=== PATIENT | male | born 1970 | race African-American/Black ===

== ENCOUNTER 2025-04-17 16:27 | Inpatient (IN) | payer OTHER ==
--- NOTE | 2025-04-17 16:53 | ED ---
SOB HPI <Harsh So - Last Filed: 04/17/25 18:42> - General Source: patient Mode of arrival: ambulatory Limitations: no limitations <Olamide Bland - Last Filed: 04/19/25 22:13> - General Chief Complaint: Shortness of Breath Stated Complaint: difficulty breathing Time Seen by Provider: 04/17/25 16:49 - History of Present Illness Initial Comments: 55-year-old male with COPD, current daily smoker here for shortness of breath. Patient reported that in the past few days she has been having difficulty of breathing with associated cough with phlegm. He is not on home oxygen. He denied fever, chills, chest pain, palpitations, extremity swelling, recent prolonged travel, recent procedures, focal weakness, abdominal pain. (Olamide Bland) - Related Data Home Medications Medication Instructions Recorded Confirmed Albuterol Nebulized [Ventolin 2.5 mg INHALATION RT-Q4H PRN 04/17/25 04/17/25 Nebulized] Albuterol Sulfate [Ventolin HFA] 2 puff INHALATION RT-QID PRN 04/17/25 04/17/25 Atorvastatin [Lipitor] 40 mg PO HS 04/17/25 04/17/25 Ergocalciferol [Vitamin D2 (1250 1,250 mcg PO WE 04/17/25 04/17/25 Mcg = 28395 Iu)] Insulin Glargine,Hum.rec.anlog 50 unit SQ HS 04/17/25 04/17/25 [Basaglar Kwikpen U-100] Insulin Lispro [humaLOG Kwikpen] 10 units SQ AC-TID 04/17/25 04/17/25 Levothyroxine Sodium [Synthroid] 125 mcg PO AC-BRKFST 04/17/25 04/17/25 Pantoprazole Sodium [Protonix] 20 mg PO DAILY 04/17/25 04/17/25 lisinopriL [Zestril] 20 mg PO DAILY@1700 04/17/25 04/17/25 metFORMIN HCL [Glucophage] 500 mg PO BID@0800,1700 04/17/25 04/17/25 traZODone HCL 100 mg PO HS 04/17/25 04/17/25 Allergies Allergy/AdvReac Type Severity Reaction Status Date / Time No Known Allergies Allergy Verified 04/17/25 19:02 Review of Systems ROS Other: All systems not noted in ROS Statement are negative. <Harsh So Oskar - Last Filed: 04/17/25 18:42> ROS Other: All systems not noted in ROS Statement are negative. <Olamide Bland - Last Filed: 04/19/25 22:13> ROS Statement: Those systems with pertinent positive or pertinent negative responses have been documented in the HPI. Past Medical History Past Medical History: COPD, Pneumonia Past Psychological History: No Psychological Hx Reported Smoking Status: Current every day smoker Past Alcohol Use History: None Reported Past Drug Use History: None Reported <Olamide Bland - Last Filed: 04/19/25 22:13> General Exam Limitations: no limitations <Olamide Bland - Last Filed: 04/19/25 22:13> - General Exam Comments Initial Comments: Physical examination: Vital signs reviewed General: non toxic, no distress, appears at stated age Head: atraumatic, normocephalic, symmetric Mouth: no lip lesion, mucus membranes moist Cardiovascular: S1S2 tachycardic, no murmur Lungs: Diffuse expiratory inspiratory wheezing, coarse rales, no accessory muscle use Abdominal: soft, nondistended, nontender to palpation, no guarding Ext: muscle strength 5 out of 5 in all 4 extremities grossly, no gross muscle atrophy, no contractures, positive dorsalis pedis pulse bilateral, no edema Neuro: no gross focal neuro deficits Psych: Alert and oriented x3, appropriate affect and mood (Olamide Bland) Course Vital Signs 04/17/25 04/17/25 04/17/25 16:40 17:44 17:55 Temperature 98.9 F Pulse Rate 106 H 104 H Respiratory 22 30 H Rate Blood Pressure 119/75 O2 Sat by Pulse 80 L Oximetry 04/17/25 04/17/25 04/17/25 17:56 18:05 18:20 Temperature Pulse Rate 98 102 H 102 H Respiratory 32 H Rate Blood Pressure 125/88 O2 Sat by Pulse 97 Oximetry 04/17/25 04/17/25 04/17/25 18:52 19:26 19:29 Temperature Pulse Rate 115 H 103 H Respiratory 26 H Rate Blood Pressure 133/84 O2 Sat by Pulse 95 94 L Oximetry 04/17/25 04/17/25 04/17/25 19:39 20:05 20:47 Temperature 97.6 F Pulse Rate 102 H 103 H Respiratory 20 Rate Blood Pressure 114/85 O2 Sat by Pulse 96 Oximetry 04/17/25 21:22 Temperature 98.3 F Pulse Rate 97 Respiratory 20 Rate Blood Pressure 124/70 O2 Sat by Pulse 91 L Oximetry Medical Decision Making - Lab Data Result diagrams: 04/17/25 17:44 04/17/25 17:44 <Harsh So - Last Filed: 04/17/25 18:42> - Lab Data Result diagrams: 04/19/25 04:35 04/19/25 04:35 <Olamide Bland - Last Filed: 04/19/25 22:13> - Medical Decision Making I personally saw the patient and performed the critical portion of the service. I discussed the patient care with the resident. I directed management, care planning and final disposition of the patient. This includes, but not limited to, review of all lab work, radiological studies, EKG's, consultations, vital signs, and nursing notes. EKG interpreted by me (3pts min.) @ [EKG reviewed by myself, please see above X-Rays interpreted by me (1 pt min.) @Chest x-ray negative for acute cardiopulmonary disease. CT interpreted by me ( 1pt min.) @None U/S interpreted by me (1 pt min.) @None Critical care time of 35 minutes minutes excluding separately billable procedures was spent in conjunction with critical care activities provided by the Resident and Attending simultaneously. I was present during no procedures for all critical portions of the procedure and as immediately available to furnish service during the entire procedure. (Harsh So) Was pt. sent in by a medical professional or institution (, PA, CHARGE MASTER ANALYST, urgent care, hospital, or fci...) When possible be specific @ -No Did you speak to anyone other than the patient for history (EMS, parent, family, police, friend...)? What history was obtained from this source @ -No Did you review nursing and triage notes (agree or disagree)? Why? @ -I reviewed and agree with nursing and triage notes Were old charts reviewed (outside hosp., previous admission, EMS record, old EKG, old radiological studies, urgent care reports/EKG's, fci records)? Report findings @ -No old charts were reviewed Differential Diagnosis? @ -Differential Dyspnea: Coronary syndrome, arrhythmia, tamponade, asthma, COPD, pulmonary embolism, pneumonia, pneumothorax, pulmonary effusion, anaphylaxis, diabetic ketoacidosis, flailed chest, pulmonary contusion, diaphragmatic rupture, anemia, neuromuscular, this is not meant to be an all-inclusive list. EKG interpreted by me (3pts min.). @ -As above X-rays interpreted by me (1pt min.). @ -chest xray showed hyperinflation looking like COPD changes. CT interpreted by me (1pt min.). @ -[None done] U/S interpreted by me (1pt. min.). @ -[None done] What testing was considered but not performed or refused? (CT, X-rays, U/S, labs )? Why? @ -[None] What meds were considered but not given or refused? Why? @ -[None] Did you discuss the management of the patient with other professionals (professionals i.e. , PA, CHARGE MASTER ANALYST, lab, RT, psych nurse, social and human services assistant, rail walker, teacher, water resources technical officer, child support case officer)? Give summary @ -Dr. Hicks supervising physician Was smoking cessation discussed for >3mins.? @ -Yes Was critical care preformed (if so, how long)? @ -35 mins Were there social determinants of health that impacted care today? How? (Homelessness, low income, unemployed, alcoholism, drug addiction, transportation, low edu. Level, literacy, decrease access to med. care, detention, rehab)? @ -[No] Was there de-escalation of care discussed even if they declined (Discuss DNR or withdrawal of care, Hospice)? DNR status @ -[No] What co-morbidities impacted this encounter? (DM, HTN, Smoking, COPD, CAD, Cancer, CVA, ARF, Chemo, Hep., AIDS, mental health diagnosis, sleep apnea, morbid obesity)? @ -[None] Was patient admitted / discharged? Hospital course, mention meds given and route, prescriptions, significant lab abnormalities, going to OR and other pertinent info. @ -Admitted. Ordered Albuteron nebs, DuoNeb, IV solumedrol. Patient's symptoms did not improve and he continued to require 4L of supplemental oxygenation and to be tachycardic despite treatment. Spoke to Jorge BRIAN of [facility] physicians who accepted this admission. Undiagnosed new problem with uncertain prognosis? @ -[No] Drug Therapy requiring intensive monitoring for toxicity (Heparin, Nitro, Insulin, Cardizem)? @ -[No] Were any procedures done? @ -[No] Diagnosis/symptom? @ -[default] Acute, or Chronic, or Acute on Chronic? @ -Acute Uncomplicated (without systemic symptoms) or Complicated (systemic symptoms)? @ -[default] Side effects of treatment? @ -[No] Exacerbation, Progression, or Severe Exacerbation? @ -Exacerbation Poses a threat to life or bodily function? How? (Chest pain, [place], [place], pneumonia, PE, COPD, DKA, ARF, appy, cholecystitis, CVA, Diverticulitis, Homicidal, Suicidal, threat to staff... and all critical care pts) @ -Yes. Can develop into respiratory failure (Olamide Bland) - Lab Data Lab Results 04/17/25 04/17/25 04/17/25 Range/Units 17:44 17:44 17:44 WBC 7.12 (4.50-10.00) 10*3/uL RBC 4.65 (4.40-5.60) 10*6/uL Hgb 14.8 (13.0-17.0) g/dL Hct 45.0 (39.6-50.0) % MCV 96.8 (80.0-97.0) fL MCH 31.8 (27.0-32.0) pg MCHC 32.9 (32.0-37.0) g/dL Plt Count 221 (140-440) 10*3/uL MPV 10.6 (9.5-12.2) fL Immature Gran % (Auto) 0.1 % Neutrophils % 48.3 % Lymphocytes % 22.3 % Monocytes % 27.7 % Eosinophils % 1.0 % Basophils % 0.6 % Immature Gran # 0.01 (0.00-0.04) 10*3/uL Neutrophils # 3.44 (1.80-7.70) 10*3/uL Lymphocytes # 1.59 (0.90-5.00) 10*3/uL Monocytes # 1.97 H (0.20-1.00) 10*3/uL Eosinophils # 0.07 (0.04-0.35) 10*3/uL Basophils # 0.04 (0.00-0.10) 10*3/uL PT 11.6 (10.0-12.5) sec INR 1.1 (<1.2) APTT 29.3 (22.0-30.0) sec Sodium 138 (137-145) mmol/L Potassium 5.3 H (3.5-5.1) mmol/L Chloride 102 (98-107) mmol/L Carbon Dioxide 29 (22-30) mmol/L Anion Gap 7 mmol/L BUN 12 (9-20) mg/dL Creatinine 0.68 (0.66-1.25) mg/dL Est GFR (CKD-EPI)AfAm >90 (>60 ml/min/1.73 sqM) Est GFR (CKD-EPI)NonAf >90 (>60 ml/min/1.73 sqM) Glucose 162 H (74-99) mg/dL Calcium 9.2 (8.4-10.2) mg/dL Total Bilirubin 0.8 (0.2-1.3) mg/dL AST 33 (17-59) U/L ALT 17 (4-49) U/L Alkaline Phosphatase 46 (38-126) U/L Troponin I (0.000-0.034) ng/mL Total Protein 8.2 (6.3-8.2) g/dL Albumin 4.6 (3.5-5.0) g/dL 04/17/ Range/Units 17:44 WBC (4.50-10.00) 10*3/uL RBC (4.40-5.60) 10*6/uL Hgb (13.0-17.0) g/dL Hct (39.6-50.0) % MCV (80.0-97.0) fL MCH (27.0-32.0) pg MCHC (32.0-37.0) g/dL Plt Count (140-440) 10*3/uL MPV (9.5-12.2) fL Immature Gran % (Auto) % Neutrophils % % Lymphocytes % % Monocytes % % Eosinophils % % Basophils % % Immature Gran # (0.00-0.04) 10*3/uL Neutrophils # (1.80-7.70) 10*3/uL Lymphocytes # (0.90-5.00) 10*3/uL Monocytes # (0.20-1.00) 10*3/uL Eosinophils # (0.04-0.35) 10*3/uL Basophils # (0.00-0.10) 10*3/uL PT (10.0-12.5) sec INR (<1.2) APTT (22.0-30.0) sec Sodium (137-145) mmol/L Potassium (3.5-5.1) mmol/L Chloride (98-107) mmol/L Carbon Dioxide (22-30) mmol/L Anion Gap mmol/L BUN (9-20) mg/dL Creatinine (0.66-1.25) mg/dL Est GFR (CKD-EPI)AfAm (>60 ml/min/1.73 sqM) Est GFR (CKD-EPI)NonAf (>60 ml/min/1.73 sqM) Glucose (74-99) mg/dL Calcium (8.4-10.2) mg/dL Total Bilirubin (0.2-1.3) mg/dL AST (17-59) U/L ALT (4-49) U/L Alkaline Phosphatase (38-126) U/L Troponin I <0.012 (0.000-0.034) ng/mL Total Protein (6.3-8.2) g/dL Albumin (3.5-5.0) g/dL - EKG Data EKG Comments: Sinus rhythm with a rate of 97 bpm, normal axis, ME interval 118 MS, castration 76 MS, no ST-T changes noted, QTc 414 MS (Olamide Bland) Critical Care Time Critical Care Time: Yes Total Critical Care Time: 35 <Harsh So - Last Filed: 04/17/25 18:42> Disposition <Harsh So - Last Filed: 04/17/25 18:42> Time of Disposition: 19:15 <Olamide Bland - Last Filed: 04/19/25 22:13> Clinical Impression: Acute exacerbation of chronic obstructive pulmonary disease Disposition: ADMITTED IP TO THIS HOSP Condition: Serious
[2025-04-17] MEDS: IPRATROPIUM 0.5 MG/2.5 ML NEBU INHALATION STA (17:54)
[2025-04-17] MEDS: ALBUTEROL NEBULIZED 2.5 MG/3 ML INHALATION STA ×3 (17:55)
[2025-04-17] MEDS: methylPREDNISolone SOD SUCCI 125 MG/2 ML VIAL IV STA (17:55)
[2025-04-17] MEDS: NICOTINE 21MG/24HR PATCH TRANSDERM STA (17:56)
[2025-04-17 17:57] LABS: Basophils # (A) 0.04 10*3/uL (0.00-0.10); Basophils % (A) 0.6 %; Eosinophils # (A) 0.07 10*3/uL (0.04-0.35); Eosinophils % (A) 1.0 %; HCT 45.0 % (39.6-50.0); HGB 14.8 g/dL (13.0-17.0); Lymphocytes # (A) 1.59 10*3/uL (0.90-5.00); Lymphocytes % (A) 22.3 %; MCH 31.8 pg (27.0-32.0); MCHC 32.9 g/dL (32.0-37.0); MCV 96.8 fL (80.0-97.0); Monocytes # (A) 1.97 10*3/uL (0.20-1.00); Monocytes % (A) 27.7 %; Neutrophils # (A) 3.44 10*3/uL (1.80-7.70); Neutrophils % (A) 48.3 %; Platelet Count 221 10*3/uL (140-440); RBC 4.65 10*6/uL (4.40-5.60); RDW 14.4 % (11.5-14.5); WBC 7.12 10*3/uL (4.50-10.00)
--- NOTE | 2025-04-17 17:59 | XR ---
EXAMINATION TYPE: XR chest 2V DATE OF EXAM: 04/17/2025 5:52 PM COMPARISON: None. CLINICAL INDICATION: Male, 55 years old with history of difficulty breathing: Shortness of breath TECHNIQUE: XR chest 2V views of the chest are obtained. FINDINGS: Scattered senescent parenchymal changes noted. Hyperinflation compatible with COPD. No evidence for infiltrate. No evidence for atelectasis. Heart size is stable. Mediastinal structures are stable and grossly unremarkable. No evidence for hilar prominence. Degenerative changes dorsal spine. IMPRESSION: 1. No evidence for acute pulmonary disease. [facility], , 04/17/2025 5:56 PM
[2025-04-17 18:10] LABS: ALT 17 U/L (4-49); African American GFR (CKD) >90 (>60 ml/min/1.73 sqM); Albumin 4.6 g/dL (3.5-5.0); Anion Gap 7 mmol/L; Blood Urea Nitrogen 12 mg/dL (9-20); Calcium 9.2 mg/dL (8.4-10.2); Carbon Dioxide 29 mmol/L (22-30); Chloride 102 mmol/L (98-107); Glucose 162 mg/dL (74-99); Non-African American GFR(CKD) >90 (>60 ml/min/1.73 sqM); Sodium 138 mmol/L (137-145); Total Protein 8.2 g/dL (6.3-8.2)
[2025-04-17 18:18] LABS: AST 33 U/L (17-59); Alkaline Phosphatase 46 U/L (38-126); Potassium 5.3 mmol/L (3.5-5.1)
[2025-04-17 18:27] LABS: INR 1.1 (<1.2); Partial Thromboplastin Time 29.3 sec (22.0-30.0); Prothrombin Time 11.6 sec (10.0-12.5)
[2025-04-17] MEDS ORDERED: NALOXONE 0.4 MG/ML 1 ML VIAL IVP PRN (18:42)
[2025-04-17] MEDS: SYMBICORT 80-4.5 MCG INHALER INHALATION SCH (19:27)
[2025-04-17] MEDS: IPRATROPIUM-ALBUTEROL 3 ML NEB INHALATION SCH (19:27)
[2025-04-17 20:14] LABS: RSV Not Detected (Not Detectd)
[2025-04-17 22:53] LABS: ABG HCO3 29 mmol/L (21-25); ABG PCO2 59 mmHg (35-45); ABG PH 7.31 (7.35-7.45); ABG PO2 66 mmHg (83-108); ABG TCO2 31 mmol/L (19-24); Allen Test Performed? Yes
[2025-04-18] MEDS: methylPREDNISolone SOD SUCCI 125 MG/2 ML VIAL IV SCH (00:05)
--- NOTE | 2025-04-18 06:20 | P.HPIM ---
History of Present Illness H&P Date: 04/17/25 Chief Complaint: Shortness of breath Patient is a 55-year-old male with a PMH of - COPD - Sleep apnea - primary hypertension - diabetes mellitus - hyperlipidemia - hypothyroidism Comes into the ED for evaluation of shortness of breath. Patient is stated that he had difficulty breathing for the past week. It kept getting worse throughout the week. He is not on home oxygen. Shortness of breath is not exertional or positional. Patient denied having fever or chills, but stated that his roommate has been sick for the past week. He developed a productive cough with clear phlegm, but yesterday he noticed the color change to green. Pt has a long smoking history - 5 cig/day for the past 3 years, and 1 pack and a half for so many years before that. Patient positive for body aches. Denied vomiting, nausea, abdominal pain, diarrhea, constipation, denied chest pain, muscle weakness, headache. Imaging No evidence for acute pulmonary disease Labs WBC 7.12, Hgb 14.8, HCT 45, plt count 2221 Na 138, K 5.3, BUN 12, Cr 0.68, Vitals T 98.5 F, HR 90, RR 18, BP 139/83, O2 sat 95% on CPAP ED documentation reviewed. Review of systems: Pertinent positives and negatives as discussed in HPI, a complete review of systems was performed and all other systems are negative. Physical examination: Vital signs reviewed General: Mild distress, well-nourished Derm: warm, dry, and well perfused. No lesions, nodules or rashes are noted Head: normocephalic and atraumatic Eyes: EOMI, anicteric sclera ENT: nose and ears atraumatic Neck: supple, no appreciable thyromegaly Mouth: no lip lesion Cardiovascular: normal S1S2, no murmur or gallops, positive dorsalis pedis pulse bilateral, no edema Lungs: labored breathing, accessory muscle use, clear to auscultation bilaterally, no wheezes or crackles or rhonchi Abdominal: soft, nontender to palpation, no guarding, no rebound, no appreciable organomegaly Ext: muscle strength 5 out of 5 in all 4 extremities grossly, no gross muscle atrophy Neuro: no focal sensory or motor deficits are noted Psych: Alert, oriented x3 Assessment/Plan: #. Acute dyspnea #. Acute on chronic hypercapnic respiratory acidosis #. COPD - possible exacerbation - Chest x-ray negative for pneumonia or fluid overload, no leg edema - Oxygen desaturation when he sleeps to 70s - ABG: pH 7.31, pCO2 59, pO2 66, HCO3 29 - Patient placed on CPAP and maintaining O2 sat around 94% - Viral panel is negative - Order sputum culture - continue methylprednisone - keep on cpap - breathing treatment as needed duo neb inhalers symbicort #. Diabetes mellitus type 2 -Hold home medications - Check HbA1c - Monitor glucose levels - Start on insulin sliding scale #. primary hypertension - Lisinopril 20 mg #. Hyperlipidemia - continue Atorvastatin 40 mg #. Hypothyroidism - continue Levothyroxine #. Mild hyperkalemia - K 5.3 - Trend #. Sleep apnea - sleep study outpatient and evaluate the need for CPAP - Pt sleepy always during the day. He does not drive DVT prophylaxis: Lovenox 40 mg The patient is admitted with an anticipated less than 2 midnight stay for evaluation of shortness of breath CODE STATUS: Full code Discussed with: Dr. Lal Anticipated discharge place: Home Lesia Pitts MD PGY-1 IM Dictation was produced using [employer] dictation software. please excuse any grammatical, word or spelling errors. I have seen and evaluated the patient today. I Discussed the case with the resident and agree with the resident's findings I edited the assessment and plan as necessary as documented in the resident's note. Past Medical History Past Medical History: COPD, Pneumonia History of Any Multi-Drug Resistant Organisms: None Reported Past Anesthesia/Blood Transfusion Reactions: No Reported Reaction Past Psychological History: No Psychological Hx Reported Smoking Status: Current every day smoker, Vaper Past Alcohol Use History: None Reported Past Drug Use History: None Reported Medications and Allergies Home Medications Medication Instructions Recorded Confirmed Type Albuterol Nebulized [Ventolin 2.5 mg INHALATION RT-Q4H PRN 04/17/25 04/17/25 History Nebulized] Albuterol Sulfate [Ventolin HFA] 2 puff INHALATION RT-QID PRN 04/17/25 04/17/25 History Atorvastatin [Lipitor] 40 mg PO HS 04/17/25 04/17/25 History Ergocalciferol [Vitamin D2 (1250 1,250 mcg PO WE 04/17/25 04/17/25 History Mcg = 80580 Iu)] Insulin Glargine,Hum.rec.anlog 50 unit SQ HS 04/17/25 04/17/25 History [Basaglar Kwikpen U-100] Insulin Lispro [humaLOG Kwikpen] 10 units SQ AC-TID 04/17/25 04/17/25 History Levothyroxine Sodium [Synthroid] 125 mcg PO AC-BRKFST 04/17/25 04/17/25 History Pantoprazole Sodium [Protonix] 20 mg PO DAILY 04/17/25 04/17/25 History lisinopriL [Zestril] 20 mg PO DAILY@1700 04/17/25 04/17/25 History metFORMIN HCL [Glucophage] 500 mg PO BID@0800,1700 04/17/25 04/17/25 History traZODone HCL 100 mg PO HS 04/17/25 04/17/25 History Allergies Allergy/AdvReac Type Severity Reaction Status Date / Time No Known Allergies Allergy Verified 04/17/25 19:02 Physical Exam Vitals: Vital Signs Temp Pulse Pulse Resp BP BP Pulse Ox 04/18/25 02:00 98.5 F 90 18 139/83 95 04/18/25 00:00 24 92 L 04/17/25 23:00 91 L 04/17/25 22:30 91 L 04/17/25 21:50 99.2 F 105 H 20 136/75 93 L 04/17/25 21:22 98.3 F 97 20 124/70 91 L 04/17/25 20:47 97.6 F 04/17/25 20:05 103 H 20 114/85 96 04/17/25 19:39 102 H 04/17/25 19:29 103 H 04/17/25 19:26 94 L 04/17/25 18:52 115 H 26 H 133/84 95 04/17/25 18:20 102 H 04/17/25 18:05 102 H 04/17/25 17:56 98 32 H 125/88 97 04/17/25 17:55 104 H 04/17/25 17:44 30 H 04/17/25 16:40 98.9 F 106 H 22 119/75 80 L Intake and Output 04/17/25 04/17/25 04/18/25 14:59 22:59 06:59 Other: Weight 108.862 kg Results CBC & Chem 7: 04/17/25 17:44 04/17/25 17:44 Labs: Abnormal Lab Results - Last 24 Hours (Table) 04/17/25 04/17/25 04/17/25 Range/Units 17:44 17:44 22:25 Monocytes # 1.97 H (0.20-1.00) 10*3/uL ABG pH 7.31 L (7.35-7.45) ABG pCO2 59 H (35-45) mmHg ABG pO2 66 L (83-108) mmHg ABG HCO3 29 H (21-25) mmol/L ABG Total CO2 31 H (19-24) mmol/L ABG O2 Saturation 91.4 L (94-97) % Potassium 5.3 H (3.5-5.1) mmol/L Glucose 162 H (74-99) mg/dL Thrombosis Risk Factor Assmnt - Choose All That Apply Any of the Below Risk Factors Present?: Yes Each Factor Represents 1 point: Abnormal pulmonary function (COPD), Age 41-60 years, Obesity (BMI >25), Swollen legs (current) Thrombosis Risk Factor Assessment Total Risk Factor Score: 4 Thrombosis Risk Factor Assessment Level: Moderate Risk
[2025-04-18 07:27] LABS: Glucose,Whole Blood 209 mg/dL (70-110)
[2025-04-18] MEDS: PANTOPRAZOLE 40 MG TABLET PO SCH (08:15)
[2025-04-18] MEDS: ENOXAPARIN 40 MG/0.4 ML SYRINGE SQ SCH (08:15)
[2025-04-18] MEDS ORDERED: DEXTROSE 50% SYRINGE 50 ML IVP PRN ×4 (09:00→10:08)
[2025-04-18] MEDS: LEVOTHYROXINE 125 MCG TAB PO SCH (09:27)
[2025-04-18] MEDS: predniSONE 20 MG TAB PO SCH (09:27)
[2025-04-18 09:39] LABS: Basophils # (A) 0.03 10*3/uL (0.00-0.10); Basophils % (A) 0.6 %; Eosinophils # (A) 0.00 10*3/uL (0.04-0.35); Eosinophils % (A) 0.0 %; HCT 42.4 % (39.6-50.0); HGB 13.7 g/dL (13.0-17.0); Lymphocytes # (A) 0.98 10*3/uL (0.90-5.00); Lymphocytes % (A) 20.3 %; MCH 31.9 pg (27.0-32.0); MCHC 32.3 g/dL (32.0-37.0); MCV 98.6 fL (80.0-97.0); Monocytes # (A) 0.12 10*3/uL (0.20-1.00); Monocytes % (A) 2.5 %; Neutrophils # (A) 3.69 10*3/uL (1.80-7.70); Neutrophils % (A) 76.4 %; Platelet Count 223 10*3/uL (140-440); RBC 4.30 10*6/uL (4.40-5.60); RDW 14.2 % (11.5-14.5); WBC 4.83 10*3/uL (4.50-10.00)
[2025-04-18 09:55] LABS: African American GFR (CKD) >90 (>60 ml/min/1.73 sqM); Anion Gap 9 mmol/L; Blood Urea Nitrogen 16 mg/dL (9-20); Calcium 9.1 mg/dL (8.4-10.2); Carbon Dioxide 28 mmol/L (22-30); Chloride 101 mmol/L (98-107); Glucose 335 mg/dL (74-99); Magnesium 1.5 mg/dL (1.6-2.3); Non-African American GFR(CKD) >90 (>60 ml/min/1.73 sqM); Potassium 4.8 mmol/L (3.5-5.1); Sodium 138 mmol/L (137-145)
[2025-04-18 12:15] LABS: Glucose,Whole Blood 304 mg/dL (70-110)
[2025-04-18] MEDS ORDERED: INSULIN LISPRO (HumaLOG) 100 UNIT/ML 10 mL VL SQ SCH (12:30)
[2025-04-18] MEDS: INSULIN LISPRO (HumaLOG) 100 UNIT/ML 10 mL VL SQ SCH ×2 (13:09→13:10)
[2025-04-18] MEDS: MAGNESIUM SULFATE-D5W PMX 1 GM in DEXTROSE/WATER 1 100ML.BAG IVPB SCH (13:10)
[2025-04-18] MEDS: NICOTINE 21MG/24HR PATCH TRANSDERM SCH (15:53)
--- NOTE | 2025-04-18 16:57 | P.PN ---
Subjective Progress Note Date: 04/18/25 Hospital Course: Patient is a 55-year-old male with a PMH of COPD, Sleep apnea , hypertension, insulin-dependent, diabetes mellitus, hyperlipidemia, hypothyroidism comes into the ED for evaluation of shortness of breath. Patient is stated that he had difficulty breathing for the past week. It kept getting worse throughout the week. He is not on home oxygen. Shortness of breath is not exertional or positional. Patient denied having fever or chills, but stated that his roommate has been sick for the past week. He developed a productive cough with clear phlegm, but yesterday he noticed the color change to green. Pt has a long smoking history - 5 cig/day for the past 3 years, and 1 pack and a half for so many years before that. Patient positive for body aches. Denied vomiting, nausea, abdominal pain, diarrhea, constipation, denied chest pain, muscle weakness, headache. Imaging: CXR independently interpreted no evidence for acute pulmonary disease Labs: WBC 7.12, Hgb 14.8, HCT 45, plt count 221, Na 138, K 5.3, BUN 12, Cr 0.68 ABG: pH 7.31, pCO2 59, pO2 66, HCO3 29 Vitals: T 98.5 F, HR 90, RR 18, BP 139/83, O2 sat 95% on CPAP Subjective: Patient seen and examined at bedside. No acute events overnight. States that he feels much better is being admitted. Discussed with patient regarding his insulin dependent diabetes. Glucose was elevataed at 304. Takes 50 SQ Lantus at home regularly. He frequently checks his sugars at home daily and states its around 120 in the morning. Pertinent positives and negatives as discussed above, a complete review of systems was performed and all other systems are negative. Vitals: Signs Reviewed Physical Exam: General: nontoxic, no distress, appears at stated age Derm: warm, dry, intact Head: atraumatic, normocephalic, symmetric Eyes: EOMI, anicteric sclera Mouth: no lip lesion, mucus membranes moist Cardiovascular: S1 S2 reg, no murmur, rubs, or gallops Lungs: Left-sided apical wheezing, left-sided rhonchi, right-sided wheezing Abdominal: soft, non-tender to palpataion, no appreciable organomegaly Extremities: no gross muscle atrophy, no edema, no contractures Neuro: Alert, Oriented, CNII-XII grossly intact, gait normal Psych: well appearing, appropriate affect Data Received Today: Pertinent Labs: Glucose range 209-304, magnesium 1.5 Imaging: N/A Assessment and Plan: #. Acute hypoxic/hypercapnic respiratory failure likely secondary to underlying acute exacerbation of COPD #. Nicotine dependence CXR reviewed as above Currently on 4 L nasal cannula, continue to down, maintain oxygen between 88- 92% DuoNebs [id number] Prednisone 40 mg p.o. daily, day 2 of 5 Mucinex 600 mg p.o. every 12 hours Nicotine patch resumed daily Will need to schedule appointment with pulmonology outpatient #. Hypomagnesemia Magnesium 1.5 Magnesium replaced with 3 g IV mag sulfate #. Insulin-dependent diabetes mellitus Insulin sliding scale SQ Accu-Cheks ACHS, hypoglycemic precautions Resume Lantus 50 units SQ at bedtime Short acting lispro 10 units AC TID A1c ordered Chronic #. Primary hypertension: Lisinopril 20 mg #. Hyperlipidemia: Continue Atorvastatin 40 mg #. Hypothyroidism: Continue Levothyroxine #. Sleep apnea: Sleep study outpatient and evaluate the need for CPAP F: N/A E: Replete as needed N: Consistent Carbohydrate A: Ambulatory DVT ppx: Lovenox 40 SQ daily Code status: Full code Anticipated discharge place: likely home Anticipated discharge time: 24-48 hrs Skyler Norwood MD PGY-2 IM Dictation was produced using [employer] dictation software. please excuse any grammatical, word or spelling errors. I saw and evaluated the patient during the verma and critical portions of this encounter, and discussed the case in detail with the resident author of this note, I agree with the Assessment and Plan, and my changes, if any, are highlighted in blue. Objective - Vital Signs Vital signs: Vital Signs Temp 98.5 F 04/18/25 12:52 Pulse 76 04/18/25 15:41 Resp 18 04/18/25 12:52 BP 130/80 04/18/25 12:52 Pulse Ox 95 04/18/25 12:52 FiO2 Intake & Output 04/17/25 04/18/25 04/18/25 18:59 06:59 18:59 Output Total 0 500 Balance 0 -500 Weight 108.862 kg 108.862 kg Output: Urine 0 500 - Labs CBC & Chem 7: 04/18/25 09:12 04/18/25 09:12 Labs: Abnormal Lab Results - Last 24 Hours (Table) 04/17/25 04/17/25 04/17/25 Range/Units 17:44 17:44 22:25 RBC (4.40-5.60) 10*6/uL MCV (80.0-97.0) fL Monocytes # 1.97 H (0.20-1.00) 10*3/uL Eosinophils # (0.04-0.35) 10*3/uL ABG pH 7.31 L (7.35-7.45) ABG pCO2 59 H (35-45) mmHg ABG pO2 66 L (83-108) mmHg ABG HCO3 29 H (21-25) mmol/L ABG Total CO2 31 H (19-24) mmol/L ABG O2 Saturation 91.4 L (94-97) % Potassium 5.3 H (3.5-5.1) mmol/L Glucose 162 H (74-99) mg/dL POC Glucose (mg/dL) (70-110) mg/dL Magnesium (1.6-2.3) mg/dL 04/18/25 04/18/25 04/18/25 Range/Units 07: 09:12 09:12 RBC 4.30 L (4.40-5.60) 10*6/uL MCV 98.6 H (80.0-97.0) fL Monocytes # 0.12 L (0.20-1.00) 10*3/uL Eosinophils # 0.00 L (0.04-0.35) 10*3/uL ABG pH (7.35-7.45) ABG pCO2 (35-45) mmHg ABG pO2 (83-108) mmHg ABG HCO3 (21-25) mmol/L ABG Total CO2 (19-24) mmol/L ABG O2 Saturation (94-97) % Potassium (3.5-5.1) mmol/L Glucose 335 H (74-99) mg/dL POC Glucose (mg/dL) 209 H (70-110) mg/dL Magnesium 1.5 L (1.6-2.3) mg/dL 04/18/25 Range/Units 12:13 RBC (4.40-5.60) 10*6/uL MCV (80.0-97.0) fL Monocytes # (0.20-1.00) 10*3/uL Eosinophils # (0.04-0.35) 10*3/uL ABG pH (7.35-7.45) ABG pCO2 (35-45) mmHg ABG pO2 (83-108) mmHg ABG HCO3 (21-25) mmol/L ABG Total CO2 (19-24) mmol/L ABG O2 Saturation (94-97) % Potassium (3.5-5.1) mmol/L Glucose (74-99) mg/dL POC Glucose (mg/dL) 304 H (70-110) mg/dL Magnesium (1.6-2.3) mg/dL
[2025-04-18 17:16] LABS: Glucose,Whole Blood 224 mg/dL (70-110)
[2025-04-18 18:08] LABS: Glucose,Whole Blood 242 mg/dL (70-110)
[2025-04-18 20:19] LABS: Glucose,Whole Blood 265 mg/dL (70-110)
[2025-04-18] MEDS ORDERED: INSULIN GLARGINE (LANTUS) 100 UNIT/ML SYR SQ SCH (21:00)
[2025-04-18] MEDS ORDERED: NON FORMULARY DRUG (Insulin Glargine,Hum.Rec.Anlog [Basaglar Kwikpen U-100] 100 UNIT/ML In SQ SCH (21:00)
[2025-04-18] MEDS: INSULIN GLARGINE (LANTUS) 100 UNIT/ML SYR SQ SCH (21:55)
[2025-04-18] MEDS: ATORVASTATIN 40 MG TAB PO SCH (21:55)
[2025-04-19 05:00] LABS: Basophils # (A) 0.03 10*3/uL (0.00-0.10); Basophils % (A) 0.2 %; Eosinophils # (A) 0.04 10*3/uL (0.04-0.35); Eosinophils % (A) 0.3 %; HCT 40.6 % (39.6-50.0); HGB 12.9 g/dL (13.0-17.0); Lymphocytes # (A) 2.34 10*3/uL (0.90-5.00); Lymphocytes % (A) 18.6 %; MCH 31.7 pg (27.0-32.0); MCHC 31.8 g/dL (32.0-37.0); MCV 99.8 fL (80.0-97.0); Monocytes # (A) 2.33 10*3/uL (0.20-1.00); Monocytes % (A) 18.5 %; Neutrophils # (A) 7.81 10*3/uL (1.80-7.70); Neutrophils % (A) 62.1 %; Platelet Count 212 10*3/uL (140-440); RBC 4.07 10*6/uL (4.40-5.60); RDW 14.0 % (11.5-14.5); WBC 12.59 10*3/uL (4.50-10.00)
[2025-04-19 05:14] LABS: African American GFR (CKD) >90 (>60 ml/min/1.73 sqM); Anion Gap 6 mmol/L; Blood Urea Nitrogen 21 mg/dL (9-20); Calcium 9.0 mg/dL (8.4-10.2); Carbon Dioxide 29 mmol/L (22-30); Chloride 102 mmol/L (98-107); Glucose 157 mg/dL (74-99); Magnesium 2.1 mg/dL (1.6-2.3); Non-African American GFR(CKD) >90 (>60 ml/min/1.73 sqM); Potassium 4.6 mmol/L (3.5-5.1); Sodium 137 mmol/L (137-145)
[2025-04-19 07:11] LABS: Glucose,Whole Blood 160 mg/dL (70-110)
[2025-04-19 11:54] LABS: Glucose,Whole Blood 179 mg/dL (70-110)
[2025-04-19 16:58] LABS: Glucose,Whole Blood 265 mg/dL (70-110)
--- NOTE | 2025-04-19 18:51 | P.PN ---
Subjective Hospital Course: Patient is a 55-year-old male with a PMH of COPD, Sleep apnea , hypertension, insulin-dependent, diabetes mellitus, hyperlipidemia, hypothyroidism comes into the ED for evaluation of shortness of breath. Patient is stated that he had difficulty breathing for the past week. It kept getting worse throughout the week. He is not on home oxygen. Shortness of breath is not exertional or positional. Patient denied having fever or chills, but stated that his roommate has been sick for the past week. He developed a productive cough with clear phlegm, but yesterday he noticed the color change to green. Pt has a long smoking history - 5 cig/day for the past 3 years, and 1 pack and a half for so many years before that. Patient positive for body aches. Denied vomiting, nausea, abdominal pain, diarrhea, constipation, denied chest pain, muscle weakness, headache. Subjective: Patient seen and examined at bedside. No acute events overnight. This morning, patient complains about "congestion" and some difficulty breathing. Pertinent positives and negatives as discussed above, a complete review of systems was performed and all other systems are negative. Vitals: Signs Reviewed Physical Exam: General: nontoxic, no distress, appears at stated age Derm: warm, dry, intact Head: atraumatic, normocephalic, symmetric, Eyes: EOMI, anicteric sclera Mouth: no lip lesion, mucus membranes moist Neck: JVD distention Cardiovascular: S1 S2 reg, no murmur, rubs, or gallops Lungs: Left-sided apical wheezing, left-sided rhonchi, right-sided wheezing, labored breathing Abdominal: soft, non-tender to palpation, no appreciable organomegaly Extremities: no gross muscle atrophy, no edema, no contractures Neuro: Alert, Oriented, CNII-XII grossly intact, gait normal Psych: well appearing, appropriate affect Data Received Today: Pertinent Labs: Hgb 12.9, Mcv 99.8, Neutrophils 7.81, Magnesium 2.1, Glucose 157 Imaging: reviewed by me EKG- right atrial involvement, AVRT visible peaked p-waves Chest x-ray- prominent right ventricle enlargement #. Acute hypoxic/hypercapnic respiratory failure likely secondary to underlying acute exacerbation of COPD #. Nicotine dependence Currently on 4 L nasal cannula, continue to down, maintain oxygen between 88- 92% DuoNebs [id number]- RT-QID, Q2H PRN Prednisone 40 mg p.o. daily, day 2 of 5 Mucinex 600 mg p.o. every 12 hours Nicotine patch resumed daily Schedule appointment with pulmonology outpatient - BNP, ECHO ordered. To evaluate possible CHF. #. Insulin-dependent diabetes mellitus Insulin sliding scale SQ Accu-Cheks ACHS, hypoglycemic precautions Resume Lantus 50 units SQ at bedtime Short acting lispro 10 units AC TID A1c ordered - 8.1 Resolved #. Hypomagnesemia Chronic #. Primary hypertension: Lisinopril 20 mg #. Hyperlipidemia: Continue Atorvastatin 40 mg #. Hypothyroidism: Continue Levothyroxine #. Sleep apnea: Sleep study outpatient and evaluate the need for CPAP F: N/A E: Replete as needed N: Consistent Carbohydrate A: Ambulatory DVT ppx: Lovenox 40 SQ daily Code status: Full code Anticipated discharge place: likely home Anticipated discharge time: pending clinical course Augustina May MD PGY-1 FM Dictation was produced using [employer] dictation software. please excuse any grammatical, word or spelling errors. I saw and evaluated the patient during the verma and critical portions of this encounter, and discussed the case in detail with the resident author of this note, I agree with the Assessment and Plan, and my changes, if any, are highlighted in blue. Objective - Vital Signs Vital signs: Vital Signs Temp 96.8 F L 04/19/25 12:52 Pulse 84 04/19/25 15:49 Resp 16 04/19/25 12:52 BP 130/84 04/19/25 12:52 Pulse Ox 94 L 04/19/25 12:52 FiO2 Intake & Output 04/18/25 04/19/25 04/19/25 18:59 06:59 18:59 Intake Total 1080 Output Total 500 1000 Balance -500 80 Intake: Oral 1080 Output: Urine 500 600 Post Void Residual 400 - Labs CBC & Chem 7: 04/19/25 04:35 04/19/25 04:35 Labs: Abnormal Lab Results - Last 24 Hours (Table) 04/18/25 04/18/25 04/19/25 Range/Units 09:12 20:18 04:35 WBC 12.59 H (4.50-10.00) 10*3/uL RBC 4.07 L (4.40-5.60) 10*6/uL Hgb 12.9 L (13.0-17.0) g/dL MCV 99.8 H (80.0-97.0) fL MCHC 31.8 L (32.0-37.0) g/dL Neutrophils # 7.81 H (1.80-7.70) 10*3/uL Monocytes # 2.33 H (0.20-1.00) 10*3/uL BUN (9-20) mg/dL Glucose (74-99) mg/dL POC Glucose (mg/dL) 265 H (70-110) mg/dL Hemoglobin A1c 8.1 H (<=6.0) % 04/19/25 04/19/25 04/19/25 Range/Units 04:35 07:10 11:53 WBC (4.50-10.00) 10*3/uL RBC (4.40-5.60) 10*6/uL Hgb (13.0-17.0) g/dL MCV (80.0-97.0) fL MCHC (32.0-37.0) g/dL Neutrophils # (1.80-7.70) 10*3/uL Monocytes # (0.20-1.00) 10*3/uL BUN 21 H (9-20) mg/dL Glucose 157 H (74-99) mg/dL POC Glucose (mg/dL) 160 H 179 H (70-110) mg/dL Hemoglobin A1c (<=6.0) % 04/19/25 Range/Units 16:56 WBC (4.50-10.00) 10*3/uL RBC (4.40-5.60) 10*6/uL Hgb (13.0-17.0) g/dL MCV (80.0-97.0) fL MCHC (32.0-37.0) g/dL Neutrophils # (1.80-7.70) 10*3/uL Monocytes # (0.20-1.00) 10*3/uL BUN (9-20) mg/dL Glucose (74-99) mg/dL POC Glucose (mg/dL) 265 H (70-110) mg/dL Hemoglobin A1c (<=6.0) %
[2025-04-19 20:31] LABS: Glucose,Whole Blood 226 mg/dL (70-110)
[2025-04-20 05:56] LABS: African American GFR (CKD) >90 (>60 ml/min/1.73 sqM); Anion Gap 6 mmol/L; Blood Urea Nitrogen 17 mg/dL (9-20); Calcium 9.2 mg/dL (8.4-10.2); Carbon Dioxide 33 mmol/L (22-30); Chloride 100 mmol/L (98-107); Glucose 112 mg/dL (74-99); Magnesium 1.7 mg/dL (1.6-2.3); Non-African American GFR(CKD) >90 (>60 ml/min/1.73 sqM); Potassium 4.6 mmol/L (3.5-5.1); Sodium 139 mmol/L (137-145)
[2025-04-20 06:06] LABS: Basophils # (A) 0.02 10*3/uL (0.00-0.10); Basophils % (A) 0.1 %; Eosinophils # (A) 0.04 10*3/uL (0.04-0.35); Eosinophils % (A) 0.3 %; HCT 41.8 % (39.6-50.0); HGB 13.2 g/dL (13.0-17.0); Lymphocytes # (A) 2.82 10*3/uL (0.90-5.00); Lymphocytes % (A) 20.2 %; MCH 31.1 pg (27.0-32.0); MCHC 31.6 g/dL (32.0-37.0); MCV 98.6 fL (80.0-97.0); Monocytes # (A) 1.98 10*3/uL (0.20-1.00); Monocytes % (A) 14.2 %; Neutrophils # (A) 9.08 10*3/uL (1.80-7.70); Neutrophils % (A) 64.9 %; Platelet Count 243 10*3/uL (140-440); RBC 4.24 10*6/uL (4.40-5.60); RDW 14.5 % (11.5-14.5); WBC 13.98 10*3/uL (4.50-10.00)
[2025-04-20 07:05] LABS: Glucose,Whole Blood 104 mg/dL (70-110)
--- NOTE | 2025-04-20 08:15 | XR ---
EXAMINATION TYPE: XR chest 1V portable DATE OF EXAM: 04/20/2025 8:05 AM COMPARISON: 04/17/2025 CLINICAL INDICATION: Male, 55 years old with history of dyspnea, TECHNIQUE: XR chest 1V portable views of the chest are obtained. FINDINGS: Demonstrated are scattered senescent parenchymal change. There is no evidence for focal infiltrate. The heart is stable. Pulmonary venous congestion with tiny effusions. Hilar and mediastinal structures are within normal limits. Degenerative changes are seen of the dorsal spine. IMPRESSION: 1. Pulmonary venous congestion with tiny effusions. [facility], , 04/20/2025 8:13 AM
[2025-04-20] MEDS: AZITHROMYCIN 500 MG in SODIUM CHLORIDE 0.9% 250 ML IVPB SCH (09:34)
--- NOTE | 2025-04-20 11:28 | P.PN ---
Subjective Progress Note Date: 04/20/25 Hospital Course: Patient is a 55-year-old male with a PMH of COPD, Sleep apnea , hypertension, insulin-dependent, diabetes mellitus, hyperlipidemia, hypothyroidism comes into the ED for evaluation of shortness of breath. Patient is stated that he had difficulty breathing for the past week. It kept getting worse throughout the week. He is not on home oxygen. Shortness of breath is not exertional or positional. Patient denied having fever or chills, but stated that his roommate has been sick for the past week. He developed a productive cough with clear phlegm, but yesterday he noticed the color change to green. Pt has a long smoking history - 5 cig/day for the past 3 years, and 1 pack and a half for so many years before that. Patient positive for body aches. Denied vomiting, nausea, abdominal pain, diarrhea, constipation, denied chest pain, muscle weakness, headache. Subjective: No acute events overnight. Patient reports continued cough and difficulty breathing overnight. He thinks he may have had more sputum production than the previous day, but is unsure. Patient denies any headaches, chest pain, dizziness, abdominal pain. Patient reports that he may be feeling feverish on and off. Patient requested stool softener. Pertinent positives and negatives as discussed above, a complete review of systems was performed and all other systems are negative. Vitals Signs Reviewed. Patient satting 95% on room air General: Nontoxic, no distress, appears at stated age Derm: Warm, dry Head: Atraumatic, normocephalic, symmetric Eyes: EOMI, no lid lag, anicteric sclera Mouth: No lip lesion, mucus membranes moist Cardiovascular: S1S2 reg, no murmur Lungs: No accessory muscle use, left lower lobe crackles worse with inspiration, diffuse wheezing bilaterally Abdominal: Soft, nontender to palpation, no guarding Ext: No gross muscle atrophy, no edema, no contractures Neuro: CN II-XI grossly intact, no focal neuro deficits Psych: Alert, oriented, appropriate affect Data Reviewed Today: Pertinent Labs: WBC 13.98 (12.59 04/19), glucose 112, BNP 23, magnesium 1.7 Imaging: Chest x-ray 04/20/2025 0805 No evidence of focal infiltrate Pulmonary venous congestion with tiny effusions Assessment and Plan: # Acute hypoxic/hypercapnic respiratory failure likely secondary to underlying acute exacerbation of COPD # Nicotine dependence - Chest x-ray 04/20 unremarkable for new infiltrate - WBC: 13.98 (12.59 04/19) - Currently on room air, continue to monitor for respiratory distress - DuoNebs 4 times daily - Prednisone 40 mg p.o. daily (day 3 of 5) - Mucinex 600 mg p.o. every 12 hours - Nicotine patch daily - Outpatient follow-up with pulmonology - Started azithromycin 500 mg IV for 3 days (EOT 04/22) # Hypomagnesemia (resolved) - Magnesium: 1.7 - Continue to monitor, replete as necessary # Insulin-dependent diabetes mellitus - Hemoglobin A1c: 8.1 04/18 - Insulin sliding scale - Accu-Cheks ACHS, hypoglycemic precautions - Lantus 50 units SQ at bedtime - Lispro 10 units AC 3 times daily # Constipation - MiraLAX as needed Chronic: # Primary hypertension: Lisinopril 20 mg # Hyperlipidemia: Continue atorvastatin 40 mg # Hypothyroidism: Continue levothyroxine # Sleep apnea: Sleep study outpatient and evaluate the need for CPAP DVT ppx: Lovenox 40 SQ daily Code status: Full code Anticipated discharge place: Likely home Anticipated discharge time: Pending clinical stability Latasha Ravi MD PGY-1 I saw and evaluated the patient during the verma and critical portions of this encounter, and discussed the case in detail with the resident author of this note, I agree with the Assessment and Plan, and my changes, if any, are highlighted in blue. Objective - Vital Signs Vital signs: Vital Signs Temp 97.9 F 04/20/25 06:47 Pulse 97 04/20/25 08:32 Resp 18 04/20/25 06:47 BP 112/75 04/20/25 06:47 Pulse Ox 95 04/20/25 08:22 FiO2 Intake & Output 04/19/25 04/20/25 04/20/25 18:59 06:59 18:59 Intake Total 118 Balance 118 Intake: Oral 118 Other: # Voids 1 - Labs CBC & Chem 7: 04/20/25 04:48 04/20/25 04:48 Labs: Abnormal Lab Results - Last 24 Hours (Table) 04/19/25 04/19/25 04/19/25 Range/Units 11:53 16:56 20:28 WBC (4.50-10.00) 10*3/uL RBC (4.40-5.60) 10*6/uL MCV (80.0-97.0) fL MCHC (32.0-37.0) g/dL Neutrophils # (1.80-7.70) 10*3/uL Monocytes # (0.20-1.00) 10*3/uL Carbon Dioxide (22-30) mmol/L Glucose (74-99) mg/dL POC Glucose (mg/dL) 179 H 265 H 226 H (70-110) mg/dL 04/20/25 04/20/25 Range/Units 04:48 04:48 WBC 13.98 H (4.50-10.00) 10*3/uL RBC 4.24 L (4.40-5.60) 10*6/uL MCV 98.6 H (80.0-97.0) fL MCHC 31.6 L (32.0-37.0) g/dL Neutrophils # 9.08 H (1.80-7.70) 10*3/uL Monocytes # 1.98 H (0.20-1.00) 10*3/uL Carbon Dioxide 33 H (22-30) mmol/L Glucose 112 H (74-99) mg/dL POC Glucose (mg/dL) (70-110) mg/dL Microbiology - Last 24 Hours (Table) 04/19/25 13:30 Gram Stain - Preliminary Sputum
[2025-04-20 12:15] LABS: Glucose,Whole Blood 200 mg/dL (70-110)
[2025-04-20 17:02] LABS: Glucose,Whole Blood 244 mg/dL (70-110)
[2025-04-20 20:16] LABS: Glucose,Whole Blood 356 mg/dL (70-110)
[2025-04-21 07:01] LABS: Glucose,Whole Blood 104 mg/dL (70-110)
[2025-04-21 09:44] LABS: HCT 43.0 % (39.6-50.0); HGB 14.0 g/dL (13.0-17.0); MCH 31.9 pg (27.0-32.0); MCHC 32.6 g/dL (32.0-37.0); MCV 97.9 fL (80.0-97.0); Platelet Count 238 10*3/uL (140-440); RBC 4.39 10*6/uL (4.40-5.60); RDW 14.0 % (11.5-14.5); WBC 11.70 10*3/uL (4.50-10.00)
[2025-04-21 10:16] LABS: African American GFR (CKD) >90 (>60 ml/min/1.73 sqM); Anion Gap 9 mmol/L; Blood Urea Nitrogen 14 mg/dL (9-20); Calcium 9.3 mg/dL (8.4-10.2); Carbon Dioxide 32 mmol/L (22-30); Chloride 100 mmol/L (98-107); Glucose 141 mg/dL (74-99); Magnesium 1.7 mg/dL (1.6-2.3); Non-African American GFR(CKD) >90 (>60 ml/min/1.73 sqM); Potassium 4.1 mmol/L (3.5-5.1); Sodium 141 mmol/L (137-145)
[2025-04-21 11:08] LABS: Anisocytosis (M) Present; Lymphocytes # (M) 2.93 k/uL (1.0-4.8); Monocytes # (M) 0.94 k/uL (0-1.0); Neutrophils # (M) 7.84 k/uL (1.3-7.7); Neutrophils % (M) 67 %; Poikilocytosis (M) Present; Total Cells Counted 100
[2025-04-21] MEDS: methylPREDNISolone SOD SUCCI 40 MG/ML 1 ML VIAL IV SCH (11:09)
[2025-04-21] MEDS: IPRATROPIUM-ALBUTEROL 3 ML NEB INHALATION SCH (11:24)
[2025-04-21 12:10] LABS: Glucose,Whole Blood 173 mg/dL (70-110)
--- NOTE | 2025-04-21 12:41 | CA ---
Transthoracic Echo Report Name: Fawad Dahl Age: 55 Gender: M : 1970 Exam Date: 04/21/2025 08:16 Exam Location: [facility] Ht (in): 70 Wt (lb): 240 Ordering Physician: Augustina May MD Attending/Referring Phys: [employer] Operator Federico sEcoto RDCS Procedure CPT: Indications: past hx of CHF, SOB Cardiac Hx: Technical Quality: Fair Contrast 1: Total Dose (mL): Contrast 2: Total Dose (mL): MEASUREMENTS (Male / Female) Normal Values 2D ECHO LV Diastolic Diameter PLAX 4.7 cm 4.2 - 5.9 / 3.9 - 5.3 cm LV Systolic Diameter PLAX 3.4 cm IVS Diastolic Thickness 1.2 cm 0.6 - 1.0 / 0.6 - 0.9 cm LVPW Diastolic Thickness 1.2 cm 0.6 - 1.0 / 0.6 - 0.9 cm LV Relative Wall Thickness 0.5 RV Internal Dim ED PLAX 4.2 cm LVOT Diameter 2.0 cm LA Systolic Diameter LX 3.3 cm 3.0 - 4.0 / 2.7 - 3.8 cm LV Diastolic Volume MOD BP 118.4 cm??? 67 - 155 / 56 - 104 cm??? LV Systolic Volume MOD BP 49.5 cm??? - 58 / 19 - 49 cm??? LV Ejection Fraction MOD BP 58.2 % >= 55 % LV Cardiac Index MOD BP 2748.7 cm???/min???m??? LV Diastolic Volume MOD 4C 127.6 cm??? LV Systolic Volume MOD 4C 48.6 cm??? LV Ejection Fraction MOD 4C 61.9 % LV Cardiac Index MOD 4C 3149.8 cm???/min???m??? LV Diastolic Length 4C 8.4 cm LV Systolic Length 4C 7.3 cm LV Diastolic Volume MOD 2C 107.9 cm??? LV Systolic Volume MOD 2C 50.4 cm??? LV Ejection Fraction MOD 2C 53.3 % LV Cardiac Index MOD 2C 2292.2 cm???/min???m??? LV Diastolic Length 2C 8.2 cm LV Systolic Length 2C 7.2 cm LA Volume 44.5 cm??? 18 - 58 / 22 - 52 cm??? LA Volume Index 18.9 cm???/m??? 16 - 28 cm???/m??? DOPPLER MV Area PHT 2.6 cm??? Mitral E Point Velocity 95.4 cm/s Mitral A Point Velocity 129.2 cm/s Mitral E to A Ratio 0.7 MV Deceleration Time 291.2 ms FINDINGS Left Ventricle Left ventricular ejection fraction is estimated at 55-60 %. Mild concentric left ventricular hypertrophy. Left ventricular cavity size normal. No obvious regional wall motion abnormalities. Right Ventricle Right ventricular dilatation. Unable to estimate the right ventricular systolic pressure. Right Atrium Normal right atrial size. Left Atrium Normal left atrial size. Mitral Valve Mitral valve thickened. Mild mitral annular calcification. . No mitral stenosis. Mild mitral regurgitation. Aortic Valve Trileaflet aortic valve. Aortic valve sclerosis. No aortic valve stenosis or regurgitation. Tricuspid Valve Structurally normal tricuspid valve. No tricuspid stenosis. Mild tricuspid regurgitation. Pulmonic Valve Pulmonic valve not well visualized. No pulmonic stenosis. No pulmonic regurgitation. Pericardium No pericardial effusion. Aorta Aortic annulus normal. CONCLUSIONS 1. Normal left ventricular size and systolic function 2. Mild mitral and tricuspid regurgitation Previewed by: Dr. Karla Mathews MD (Electronically Signed) Final Date: 21 April 2025 12:41
--- NOTE | 2025-04-21 13:11 | P.PN ---
Subjective Progress Note Date: 04/21/25 Hospital Course: Patient is a 55-year-old male with a PMH of COPD, Sleep apnea , hypertension, insulin-dependent diabetes mellitus, hyperlipidemia, hypothyroidism comes into the ED for evaluation of shortness of breath. Patient is stated that he had difficulty breathing for the past week. It kept getting worse throughout the week. He is not on home oxygen. Shortness of breath is not exertional or po sitional. Patient denied having fever or chills, but stated that his roommate has been sick for the past week. He developed a productive cough with clear phlegm, but yesterday he noticed the color change to green. Pt has a long smoking history - 5 cig/day for the past 3 years, and 1 pack and a half for so many years before that. Patient positive for body aches. Denied vomiting, nausea, abdominal pain, diarrhea, constipation, denied chest pain, muscle weakness, headache. Subjective: No acute events overnight. Patient reports worsening cough and difficulty breathing overnight with sputum production. Patient reports that he continues to feel feverish. He states that when he is lying on his left side, he has more difficulty breathing. Patient denies headaches, dizziness, chest pain, abdominal pain. Pertinent positives and negatives as discussed above, a complete review of systems was performed and all other systems are negative. Vitals Signs Reviewed. Patient satting 90% on 2 L nasal cannula General: Nontoxic, no distress, appears at stated age Derm: Warm, dry Head: Atraumatic, normocephalic, symmetric Eyes: EOMI, no lid lag, anicteric sclera Mouth: No lip lesion, mucus membranes moist Cardiovascular: S1S2 reg, no murmur Lungs: No accessory muscle use, left lower lobe crackles worse with inspiration, diffuse wheezing bilaterally Abdominal: Soft, nontender to palpation, no guarding Ext: No gross muscle atrophy, no edema, no contractures Neuro: CN II-XI grossly intact, no focal neuro deficits Psych: Alert, oriented, appropriate affect Data Reviewed Today: Pertinent Labs: WBC 11.7 (13.98 04/20), glucose 141, potassium 4.1, magnesium 1.7 Imaging: Chest x-ray 04/20/2025 0805 No evidence of focal infiltrate Pulmonary venous congestion with tiny effusions Assessment and Plan: Patient is a 55-year-old male with past medical history of COPD, sleep apnea, hypertension, insulin-dependent diabetes mellitus, hyperlipidemia, hypothyroidism who is being treated for COPD exacerbation. # Acute hypoxic/hypercapnic respiratory failure likely secondary to underlying acute exacerbation of COPD # Nicotine dependence - Chest x-ray 04/20 unremarkable for new infiltrate - WBC 11.7 (13.98 04/20) - Mucinex 600 mg p.o. every 12 hours - Nicotine patch daily - Outpatient follow-up with pulmonology - Continue azithromycin 500 mg IV for 3 days (EOT 04/22) - Changed DuoNebs to Q4 - Pending repeat chest x-ray - Pending procalcitonin - Started Solu-Medrol 40 mg Q8 - Started ceftriaxone 2 g daily - Flutter training # Hypomagnesemia - Magnesium: 1.7 04/21 - Replete mag w/ 2 gm mag sulfate infusion # Insulin-dependent diabetes mellitus - Hemoglobin A1c: 8.1 04/18 - Insulin sliding scale - Accu-Cheks ACHS, hypoglycemic precautions - Lantus 50 units SQ at bedtime - Lispro 10 units AC 3 times daily # Constipation - MiraLAX as needed Chronic: # Primary hypertension: Lisinopril 20 mg # Hyperlipidemia: Continue atorvastatin 40 mg # Hypothyroidism: Continue levothyroxine # Sleep apnea: Sleep study outpatient and evaluate the need for CPAP DVT ppx: Lovenox 40 SQ daily Code status: Full code Anticipated discharge place: Likely home Anticipated discharge time: Pending clinical stability Latasha Ravi MD PGY-1 I saw and evaluated the patient during the verma and critical portions of this e ncounter, and discussed the case in detail with the resident author of this note, I agree with the Assessment and Plan, and my changes, if any, are highlighted in blue. Objective - Vital Signs Vital signs: Vital Signs Temp 98.3 F 04/21/25 12:23 Pulse 96 04/21/25 12:23 Resp 20 04/21/25 12:23 BP 136/87 04/21/25 12:23 Pulse Ox 90 L 04/21/25 12:23 FiO2 Intake & Output 04/20/25 04/21/25 04/21/25 18:59 06:59 18:59 Intake Total 1674 222 120 Balance 1674 222 120 Intake: Intake, IV Titration 250 Amount Azithromycin 500 mg In 250 Sodium Chloride 0.9% 250 ml @ 250 mls/hr IVPB DAILY [facility] Rx#:[id number] Oral 1424 222 120 Other: Voiding Method Toilet # Voids 1 - Labs CBC & Chem 7: 04/21/25 09:05 04/21/25 09:05 Labs: Abnormal Lab Results - Last 24 Hours (Table) 04/20/25 04/20/25 04/21/25 Range/Units 16:58 20:13 09:05 WBC 11.70 H (4.50-10.00) 10*3/uL RBC 4.39 L (4.40-5.60) 10*6/uL MCV 97.9 H (80.0-97.0) fL Neutrophils # (Manual) 7.84 H (1.3-7.7) k/uL Carbon Dioxide (22-30) mmol/L Glucose (74-99) mg/dL POC Glucose (mg/dL) 244 H 356 H (70-110) mg/dL 04/21/25 04/21/25 Range/Units 09:05 12:08 WBC (4.50-10.00) 10*3/uL RBC (4.40-5.60) 10*6/uL MCV (80.0-97.0) fL Neutrophils # (Manual) (1.3-7.7) k/uL Carbon Dioxide 32 H (22-30) mmol/L Glucose 141 H (74-99) mg/dL POC Glucose (mg/dL) 173 H (70-110) mg/dL
[2025-04-21] MEDS: MAGNESIUM SULFATE-D5W PMX 1 GM in DEXTROSE/WATER 1 100ML.BAG IVPB SCH (13:28)
--- NOTE | 2025-04-21 13:58 | XR ---
EXAMINATION TYPE: XR chest 1V DATE OF EXAM: 04/21/2025 COMPARISON: 04/20/2025 CLINICAL INDICATION: Male, 55 years old with history of dyspnea; , TECHNIQUE: XR chest 1V views of the chest. FINDINGS: Heart is enlarged. There is a diffuse interstitial pattern. No pleural effusion or pneumothorax. Unde rlying COPD. Osteopenia, degenerative change of the spine and arthropathy of the shoulder. IMPRESSION: 1. COPD correlate for interstitial lung disease, venous congestion or infectious interstitial pneumon itis. Stable from prior exam. [facility], , 04/21/2025 1:55 PM
[2025-04-21 17:05] LABS: Glucose,Whole Blood 276 mg/dL (70-110)
[2025-04-21 20:34] LABS: Glucose,Whole Blood 337 mg/dL (70-110)
[2025-04-22 06:57] LABS: Glucose,Whole Blood 259 mg/dL (70-110)
[2025-04-22 10:21] LABS: Basophils # (A) 0.03 X 10*3/uL (0.00-0.10); Basophils % (A) 0.3 %; Eosinophils # (A) 0 X 10*3/uL (0.04-0.35); Eosinophils % (A) 0 %; HCT 42.6 % (39.6-50.0); HGB 13.4 g/dL (13.0-17.0); Immature Grans, Automated 0.40 %; Lymphocytes # (A) 0.89 X 10*3/uL (0.90-5.00); Lymphocytes % (A) 7.9 %; MCH 30.9 pg (27.0-32.0); MCHC 31.5 g/dL (32.0-37.0); MCV 98.4 FL (80.0-97.0); Monocytes # (A) 0.48 X 10*3/uL (0.20-1.00); Monocytes % (A) 4.3 %; NRBC Per 100 WBC 0 X 10*3/uL (0.00-0.01); Neutrophils # (A) 9.77 X 10*3/uL (1.80-7.70); Neutrophils % (A) 87.1 %; Platelet Count 262 X 10*3/uL (140-440); RBC 4.33 X 10*6/uL (4.40-5.60); RDW 14.0 % (11.5-14.5); WBC 11.21 X 10*3/uL (4.50-10.00)
[2025-04-22 10:56] LABS: Anion Gap 11.30 mmol/L (4.00-12.00); BUN/Creat Ratio 19.62 Ratio (12.00-20.00); Blood Urea Nitrogen 15.7 mg/dL (9.0-27.0); Calcium 9.1 mg/dL (8.7-10.3); Carbon Dioxide 26.7 mmol/L (21.6-31.8); Chloride 100 mmol/L (96-109); Glucose 282 mg/dL (70-110); Magnesium 1.9 mg/dL (1.5-2.4); Potassium 5.1 mmol/L (3.5-5.5); Sodium 138 mmol/L (135-145)
[2025-04-22 12:04] LABS: Glucose,Whole Blood 239 mg/dL (70-110)
[2025-04-22] MEDS: INSULIN LISPRO (HumaLOG) 100 UNIT/ML 10 mL VL SQ SCH (13:40)
[2025-04-22 16:50] LABS: Glucose,Whole Blood 269 mg/dL (70-110)
--- NOTE | 2025-04-22 18:25 | P.PN ---
Subjective Progress Note Date: 04/22/25 Hospital Course: Patient is a 55-year-old male with a PMH of COPD, Sleep apnea , hypertension, insulin-dependent diabetes mellitus, hyperlipidemia, hypothyroidism comes into the ED for evaluation of shortness of breath. Patient is stated that he had difficulty breathing for the past week. It kept getting worse throughout the week. He is not on home oxygen. Shortness of breath is not exertional or po sitional. Patient denied having fever or chills, but stated that his roommate has been sick for the past week. He developed a productive cough with clear phlegm, but yesterday he noticed the color change to green. Pt has a long smoking history - 5 cig/day for the past 3 years, and 1 pack and a half for so many years before that. Patient positive for body aches. Denied vomiting, nausea, abdominal pain, diarrhea, constipation, denied chest pain, muscle weakness, headache. Subjective: No acute events overnight. Patient reports that he had some improvement in breathing and cough. He describes less mucus production, but remains the same color and consistency. He has not had a bowel movement since last given MiraLAX. Patient was amenable to having scheduled MiraLAX once daily. He thong es feeling feverish, chest pain, headaches, dizziness, abdominal pain, lightheadedness. Pertinent positives and negatives as discussed above, a complete review of systems was performed and all other systems are negative. Vitals Signs Reviewed. Patient satting 98 % on 2 L nasal cannula General: Nontoxic, no distress, appears at stated age Derm: Warm, dry Head: Atraumatic, normocephalic, symmetric Eyes: EOMI, no lid lag, anicteric sclera Mouth: No lip lesion, mucus membranes moist Cardiovascular: S1S2 reg, no murmur Lungs: No accessory muscle use, left lower lobe crackles worse with inspiration, diffuse wheezing bilaterally Abdominal: Soft, nontender to palpation, no guarding Ext: No gross muscle atrophy, no edema, no contractures Neuro: CN II-XI grossly intact, no focal neuro deficits Psych: Alert, oriented, appropriate affect Data Reviewed Today: Pertinent Labs: WBC 11.21 (11.7 04/21), glucose 82, potassium 5.1, magnesium 1.9, procalcitonin 0.06 04/21 Imaging: Chest x-ray 04/20/2025 0805 No evidence of focal infiltrate Pulmonary venous congestion with tiny effusions Chest x-ray 04/21 1. COPD correlate for interstitial lung disease, venous congestion, or infectious interstitial pneumonitis. Stable from prior exam. Assessment and Plan: Patient is a 55-year-old male with past medical history of COPD, sleep apnea, hypertension, insulin-dependent diabetes mellitus, hyperlipidemia, hypothyroidism who is being treated for COPD exacerbation. # Acute hypoxic/hypercapnic respiratory failure likely secondary to underlying acute exacerbation of COPD # Nicotine dependence - Chest x-ray 04/20+04/21 unremarkable for new infiltrate - WBC 11.21 (11.7 04/21) - Procalcitonin 0.06 04/21 - Mucinex 600 mg p.o. every 12 hours - Nicotine patch daily - Outpatient follow-up with pulmonology - Continue azithromycin 500 mg IV for 3 days (EOT 04/22) - Changed DuoNebs to Q4 - Flutter training - Transitioned Solu-Medrol 40 mg Q8 to oral prednisone 40 mg p.o. daily - Discontinued ceftriaxone 2 g daily - Wean patient off of O2 in preparation for discharge as clinical picture improves - Sputum culture growing haemophilus influenza, likely colonized - Patient on likely also has pulmonary hypertension, needs further follow-up outpatient. # Hypomagnesemia - Magnesium: 1.9 04/22 - Mag repleted on 04/21 - Continue to monitor # Insulin-dependent diabetes mellitus - Hemoglobin A1c: 8.1 04/18 - Insulin sliding scale - Accu-Cheks ACHS, hypoglycemic precautions - Lantus 50 units SQ at bedtime - Changed lispro to 15 units AC 3 times daily # Constipation - MiraLAX as scheduled daily Chronic: # Primary hypertension: Lisinopril 20 mg # Hyperlipidemia: Continue atorvastatin 40 mg # Hypothyroidism: Continue levothyroxine # Sleep apnea: Sleep study outpatient and evaluate the need for CPAP DVT ppx: Lovenox 40 SQ daily Code status: Full code Anticipated discharge place: Likely home Anticipated discharge time: Tomorrow pending tolerance of oral steroids and weaning oxygen Latasha Ravi MD PGY-1 I have seen and evaluated the patient today. Discussed with the resident and agree with the residents finding and plan as documented in the resident's note. Changes highlighted in blue font. Objective - Vital Signs Vital signs: Vital Signs Temp 97.8 F 04/21/25 18:52 Pulse 85 04/22/25 04:20 Resp 18 04/22/25 04:20 BP 116/81 04/22/25 00:50 Pulse Ox 98 04/22/25 00:50 FiO2 Intake & Output 04/21/25 04/22/25 04/22/25 18:59 06:59 18:59 Intake Total 2960 540 Output Total 700 700 Balance 2260 -160 Intake: Intake, IV Titration 500 Amount Azithromycin 500 mg In 250 Sodium Chloride 0.9% 250 ml @ 250 mls/hr IVPB DAILY [facility] Rx#:[id number] Magnesium Sulfate-D5w Pmx 200 1 gm In Dextrose/Water 1 100ml.bag @ 100 mls/hr IVPB Q1H [facility] Rx#: [id number] cefTRIAXone 2 gm In 50 Sodium Chloride 0.9% 50 ml @ 100 mls/hr IVPB Q24HR [facility] Rx#:[id number] Oral 2460 540 Output: Urine 700 700 Other: Voiding Method Toilet Toilet # Voids 4 - Labs CBC & Chem 7: 04/22/25 06:15 04/22/25 06:15 Labs: Abnormal Lab Results - Last 24 Hours (Table) 04/21/25 04/21/25 04/21/25 Range/Units 09:05 09:05 12:08 WBC 11.70 H (4.50-10.00) 10*3/uL RBC 4.39 L (4.40-5.60) 10*6/uL MCV 97.9 H (80.0-97.0) fL Neutrophils # (Manual) 7.84 H (1.3-7.7) k/uL Carbon Dioxide 32 H (22-30) mmol/L Glucose 141 H (74-99) mg/dL POC Glucose (mg/dL) 173 H (70-110) mg/dL 04/21/25 04/21/25 04/22/25 Range/Units 17:02 20:26 06:56 WBC (4.50-10.00) 10*3/uL RBC (4.40-5.60) 10*6/uL MCV (80.0-97.0) fL Neutrophils # (Manual) (1.3-7.7) k/uL Carbon Dioxide (22-30) mmol/L Glucose (74-99) mg/dL POC Glucose (mg/dL) 276 H 337 H 259 H (70-110) mg/dL Microbiology - Last 24 Hours (Table) 04/19/25 13:30 Gram Stain - Preliminary Sputum Sputum Culture - Preliminary Haemophilus influenzae
[2025-04-22 20:15] LABS: Glucose,Whole Blood 251 mg/dL (70-110)
[2025-04-23] MEDS: IPRATROPIUM-ALBUTEROL 3 ML NEB INHALATION PRN (00:29)
[2025-04-23 07:21] LABS: Glucose,Whole Blood 166 mg/dL (70-110)
[2025-04-23 08:13] VITALS: BP 109/70; RESP 20; TEMP 97.9
[2025-04-23] MEDS: predniSONE 20 MG TAB PO SCH (08:25)
[2025-04-23 11:02] LABS: Basophils # (A) 0.03 X 10*3/uL (0.00-0.10); Basophils % (A) 0.2 %; Eosinophils # (A) 0.06 X 10*3/uL (0.04-0.35); Eosinophils % (A) 0.4 %; HCT 42.2 % (39.6-50.0); HGB 13.2 g/dL (13.0-17.0); Immature Grans, Automated 0.30 %; Lymphocytes # (A) 2.69 X 10*3/uL (0.90-5.00); Lymphocytes % (A) 16.8 %; MCH 31.0 pg (27.0-32.0); MCHC 31.3 g/dL (32.0-37.0); MCV 99.1 FL (80.0-97.0); Monocytes # (A) 1.54 X 10*3/uL (0.20-1.00); Monocytes % (A) 9.6 %; NRBC Per 100 WBC 0 X 10*3/uL (0.00-0.01); Neutrophils # (A) 11.65 X 10*3/uL (1.80-7.70); Neutrophils % (A) 72.7 %; Platelet Count 274 X 10*3/uL (140-440); RBC 4.26 X 10*6/uL (4.40-5.60); RDW 14.0 % (11.5-14.5); WBC 16.02 X 10*3/uL (4.50-10.00)
[2025-04-23 11:23] LABS: Anion Gap 11.20 mmol/L (4.00-12.00); BUN/Creat Ratio 22.67 Ratio (12.00-20.00); Blood Urea Nitrogen 20.4 mg/dL (9.0-27.0); Calcium 9.0 mg/dL (8.7-10.3); Carbon Dioxide 27.8 mmol/L (21.6-31.8); Chloride 102 mmol/L (96-109); Glucose 186 mg/dL (70-110); Magnesium 1.7 mg/dL (1.5-2.4); Potassium 4.3 mmol/L (3.5-5.5); Sodium 141 mmol/L (135-145)
[2025-04-23 11:50] VITALS: PULSE 86
[2025-04-23 12:01] LABS: Glucose,Whole Blood 183 mg/dL (70-110)
[2025-04-23 12:36] VITALS: BMI 34.4
--- NOTE | 2025-04-23 16:04 | P.DS ---
Providers Date of admission: 04/17/25 18:42 Expected date of discharge: 04/23/25 Attending physician: Reuben Cotto Primary care physician: Stated None Hospital Course: Discharge Diagnosis: # Acute hypoxic/hypercapnic respiratory failure likely secondary to underlying acute exacerbation of COPD # Nicotine dependence # Insulin-dependent diabetes mellitus # Constipation Chronic: # Hypertension # Hyperlipidemia # Hypothyroidism # Sleep apnea Hospital Course: Patient is a 55-year-old male with a PMH of COPD, Sleep apnea , hypertension, insulin-dependent diabetes mellitus, hyperlipidemia, hypothyroidism comes into the ED for evaluation of shortness of breath. Patient is stated that he had difficulty breathing for the past week. It kept getting worse throughout the week. He is not on home oxygen. Shortness of breath is not exertional or positional. Patient denied having fever or chills, but stated that his roommate has been sick for the past week. He developed a productive cough with clear phlegm, but yesterday he noticed the color change to green. Pt has a long smoking history - 5 cig/day for the past 3 years, and 1 pack and a half for so many years before that. Patient positive for body aches. Denied vomiting, nausea, abdominal pain, diarrhea, constipation, denied chest pain, muscle weakness, headache. During hospital stay, patient was treated for acute hypoxic/hypercapnic respiratory failure secondary to acute exacerbation of COPD. Patient was originally completed a course of azithromycin for 3 days. Due to continued heavy sputum production and occasional worsening of dyspnea, patient was started on ceftriaxone for 1 day and received 2 chest x-rays on 04/20 and 04/21. Both x- rays were unremarkable for focal infiltrate. Patient sputum culture eventually grew haemophilus influenza, likely colonized. Patient was treated with DuoNebs 4 times daily, eventually transition to every 4. Patient was treated with 5 days of prednisone, subsequently transition to IV Solu-Medrol, and then prior to discharge transition back to prednisone. Steroid tapering not necessary as total duration of treatments will be 10 days. Diabetes mellitus was managed with Lantus 50 SQ at bedtime and lispro 10 units 3 times daily, eventually changed to lispro 15 units 3 times daily due to elevated blood glucose levels. Further her diabetes optimization required outpatient. Patient also had an echocardiogram which showed normal EF, likely pulmonary hypertension. Patient was discharged in good condition. Patient was discharged with MiraLAX due to continued constipation during hospitalization. Patient discharged with 3 more days of oral prednisone treatment. Patient was discharged on long-acting muscarinic antagonist (tiotropium bromide) due to meeting criteria for daily COPD management. Advised that patient follow-up for treatment of potential sleep apnea with outpatient sleep study. Patient seen and examined at bedside. General: Nontoxic, no distress, appears at stated age Derm: Warm, dry Head: Atraumatic, normocephalic, symmetric Eyes: EOMI, no lid lag, anicteric sclera Mouth: No lip lesion, mucus membranes moist Cardiovascular: S1S2 reg, no murmur Lungs: No accessory muscle use, left lower lobe crackles worse with inspiration (improved from prior physical exam), wheezing no longer present bilaterally Abdominal: Soft, nontender to palpation, no guarding Ext: No gross muscle atrophy, no edema, no contractures Neuro: CN II-XI grossly intact, no focal neuro deficits Psych: Alert, oriented, appropriate affect Latasha Ravi MD PGY-1 A total of 38 minutes of time were spent preparing this complex discharge summary. Patient was discharged on 04/23/2025. I have seen and evaluated the patient today. Discussed with the resident and agree with the residents finding and plan as documented in the resident's note. Changes highlighted in blue font. Patient Condition at Discharge: Good Plan - Discharge Summary Discharge Rx Participant: No New Discharge Prescriptions: New predniSONE [Deltasone] 40 mg PO DAILY #8 tab guaiFENesin [Mucinex] 600 mg PO Q12HR PRN #30 tab PRN Reason: Congestion Tiotropium [place] [Spiriva Handihaler] 18 mcg IH DAILY #30 each polyethylene glycoL 3350 [Miralax] 17 gm PO DAILY #60 packet Continue Ergocalciferol [Vitamin D2 (1250 Mcg = 26671 Iu)] 1,250 mcg PO WE metFORMIN HCL [Glucophage] 500 mg PO BID@0800,1700 lisinopriL [Zestril] 20 mg PO DAILY@1700 Pantoprazole Sodium [Protonix] 20 mg PO DAILY Levothyroxine Sodium [Synthroid] 125 mcg PO AC-BRKFST Insulin Glargine,Hum.rec.anlog [Basaglar Kwikpen U-100] 50 unit SQ HS Albuterol Sulfate [Ventolin HFA] 2 puff INHALATION RT-QID PRN PRN Reason: Shortness Of Breath Albuterol Nebulized [Ventolin Nebulized] 2.5 mg INHALATION RT-Q4H PRN PRN Reason: Shortness Of Breath traZODone HCL 100 mg PO HS Atorvastatin [Lipitor] 40 mg PO HS Changed Insulin Lispro [humaLOG Kwikpen] 15 units SQ AC-TID #0 Discharge Medication List Albuterol Nebulized [Ventolin Nebulized] 2.5 mg INHALATION RT-Q4H PRN 04/17/25 [History] Albuterol Sulfate [Ventolin HFA] 2 puff INHALATION RT-QID PRN 04/17/25 [History] Atorvastatin [Lipitor] 40 mg PO HS 04/17/25 [History] Ergocalciferol [Vitamin D2 (1250 Mcg = 90796 Iu)] 1,250 mcg PO WE 04/17/25 [History] Insulin Glargine,Hum.rec.anlog [Basaglar Kwikpen U-100] 50 unit SQ HS 04/17/25 [History] Levothyroxine Sodium [Synthroid] 125 mcg PO AC-BRKFST 04/17/25 [History] Pantoprazole Sodium [Protonix] 20 mg PO DAILY 04/17/25 [History] lisinopriL [Zestril] 20 mg PO DAILY@1700 04/17/25 [History] metFORMIN HCL [Glucophage] 500 mg PO BID@0800,1700 04/17/25 [History] traZODone HCL 100 mg PO HS 04/17/25 [History] Insulin Lispro [humaLOG Kwikpen] 15 units SQ AC-TID #0 04/23/25 [Rx] Tiotropium [place] [Spiriva Handihaler] 18 mcg IH DAILY #30 each 04/23/25 [Rx] guaiFENesin [Mucinex] 600 mg PO Q12HR PRN #30 tab 04/23/25 [Rx] polyethylene glycoL 3350 [Miralax] 17 gm PO DAILY #60 packet 04/23/25 [Rx] predniSONE [Deltasone] 40 mg PO DAILY #8 tab 04/23/25 [Rx] Follow up Appointment(s)/Referral(s): Harsh Pablo DO [Doctor of Osteopathic Medicine] - 1 Week (Per office please get a refferal from your primary doctor then they will see you.) Анна Thorpe MD [STAFF PHYSICIAN] - 1 Week (Left a message the office will call you with an appointment time and date if they do not call by sundayApr 24 please call them. You also need them to send in a refferal for Dr. Bev bay .) Patient Instructions/Handouts: COPD (Chronic Obstructive Pulmonary Disease) (DC) Activity/Diet/Wound Care/Special Instructions: Please see PCP, and pulmonology. Discharge Disposition: HOME SELF-CARE
== END 2025-04-23 13:58 | disposition home or self-care (01) | DRG 189 ==
LOC: EC 16:27 → 5NMEDONC 18:42
PROVIDERS: ADMIT Student in an Organized Health Care Education/Training Program; ATTEND Student in an Organized Health Care Education/Training Program
DX: J96.01 Acute respiratory failure with hypoxia (principal); E87.29 Other acidosis; I27.20 Pulmonary hypertension, unspecified; J44.1 Chronic obstructive pulmonary disease with (acute) exacerbation; E11.9 Type 2 diabetes mellitus without complications; I10 Essential (primary) hypertension; E03.9 Hypothyroidism, unspecified; J96.02 Acute respiratory failure with hypercapnia; Z79.4 Long term (current) use of insulin; F17.200 Nicotine dependence, unspecified, uncomplicated; K59.00 Constipation, unspecified; E78.5 Hyperlipidemia, unspecified; G47.30 Sleep apnea, unspecified; E87.5 Hyperkalemia; E83.42 Hypomagnesemia; Z79.84 Long term (current) use of oral hypoglycemic drugs; Z79.890 Hormone replacement therapy; Z79.899 Other long term (current) drug therapy
CPT/HCPCS: 36415; 36600; 71045; 71046; 80048; 80053; 82805; 83036; 83605; 83735; 83880; 84145; 84484; 85025; 85610; 85730; 87070; 87205; 87636; 93005; 93306; 94640; 94644; 94660; 94667; 94760; 96374; 99291